=== PATIENT | female | born 1935 | race Caucasian/White ===

== ENCOUNTER 2017-07-30 09:42 | Emergency (ER) | payer MEDICARE, OTHER ==
[~2017-07-30] VITALS: Ht 152.4 cm; Wt 45.0 kg
[~2017-07-30 09:42] MED LIST: B CO1TAB2 PO; CRANCAP2 PO; DOXY100C PO; ENAL5TAB PO; ESTR1TAB PO; FOLI400T PO; MONT10TA2 PO; MULTTAB67 PO; PRED20 PO
[2017-07-30] MEDS ORDERED: LORazepam 2 MG TAB PO ONE (10:30)
[2017-07-30 11:17] VITALS: BP 143/65; PULSE 83; RESP 19; TEMP 98.3; O2SAT 100
--- NOTE | 2017-07-30 11:29 | PD ---
HPI Chief Complaint: Anxiety Time Seen by Provider: 11:26 Travel History International Travel<30 days: No Contact w/Intl Traveler<30days: No Traveled to known affect area: No History of Present Illness HPI Patient is an 81-year-old female presents emergency department for evaluation of generalized tremor. She states she was on her way to her primary care physician's office to discuss her medications as well as her chronic vaginal irritation when she developed generalized from her. This was first noticed by her son who is accompanying her, she was placed in a wheelchair and brought over to the emergency department for further evaluation. Patient states is never happened to her before. No alterations in consciousness, no tongue biting , no loss of urine. Patient does endorse nearly 20 pound weight loss over the past year. She states this was provoked by her and her son dying as well as her needing surgery on her face. She denies any blood in the stool vaginal bleeding cough congestion fevers nausea vomiting or chest pain. PFSH Past Medical History Cancer: No Cardiovascular Problems: No Diabetes: No Diminished Hearing: No Endocrine: No Genitourinary: No Hepatitis: No Hiatal Hernia: No Hypertension: Yes Immune Disorder: No Musculoskeletal: Yes (ARTHRITIS) Neurologic: No Psychiatric: No Reproductive: No Respiratory: No Thyroid Disease: No ?: Not Past Surgical History Abdominal Surgery: Yes (AGE 5 APPENDECTOMY) AICD: No Appendectomy: Yes Cardiac Surgery: No Ear Surgery: No Endocrine Surgery: No Eye Surgery: Yes (RIGHT CATARACT SURGERY) Genitourinary Surgery: No Gynecologic Surgery: Yes (HYSTERECTOMY) Hysterectomy: Yes Joint Replacement: No Oral Surgery: Yes (T&A AGE 2) Pacemaker: No Thoracic Surgery: No Tonsillectomy: Yes Other Surgery: Yes Social History Alcohol Use: No Tobacco Use: No (FORMER) Substance Use: No Allergies-Medications (Allergen,Severity, Reaction): Coded Allergies: codeine (Unverified Allergy, Mild, PASSES OUT, 04/29/17) amoxicillin (Unverified Adverse Reaction, Unknown, 04/29/17) clavulanic acid (Unverified Adverse Reaction, Unknown, 04/29/17) Reported Meds & Prescriptions Reported Meds & Active Scripts Active Reported Rephresh Pro-B (Lactobacillus) 2.5B-2.5B Cap 1 Cap PO DAILY Nasacort Allergy 24Hr Nasal [place] (Triamcinolone Acetonide Nasal [place]) 55 Mcg Spr 1 [place] EACH NARE DAILY PRN Claritin (Loratadine) 10 Mg Tablet 10 Mg PO DAILY Garlic Oil 1000 (Garlic) 1,000 Mg Cap 2,000 Mg PO DAILY Vitamin D3 (Cholecalciferol (Vitamin D3)) 2,000 Unit Tab.chew 2,000 Units PO DAILY [Red [place]] 375 Mg PO DAILY Cranberry Plus Vitamin C (Cranberry-Vitamin C-Vitamin E) 4,200-20-3 Mg-Mg-Unit Cap 2 Cap PO TID B Complex W/ C 1 Tab Tab 1 Tab PO DAILY Folic Acid 400 Mcg Tab 400 Mcg PO DAILY Enalapril (Enalapril Maleate) 5 Mg Tab 2.5 Mg PO DAILY Review of Systems Except as stated in HPI: all other systems reviewed are Neg Physical Exam Narrative GENERAL: Well-developed well-nourished but thin in no obvious distress. SKIN: Focused skin assessment warm/dry. HEAD: Atraumatic. Normocephalic. EYES: Pupils equal and round. No scleral icterus. No injection or drainage. ENT: No nasal bleeding or discharge. Mucous membranes pink and moist. NECK: Trachea midline. No JVD. CARDIOVASCULAR: Regular rate and rhythm. No murmur appreciated. RESPIRATORY: No accessory muscle use. Clear to auscultation. Breath sounds equal bilaterally. GASTROINTESTINAL: Abdomen soft, non-tender, nondistended. Hepatic and splenic margins not palpable. MUSCULOSKELETAL: No obvious deformities. No clubbing. No cyanosis. No edema. NEUROLOGICAL: Awake and alert. Cranial nerves II through XII are grossly intact and nonfocal, 5 out of 5 strength in all 4 extremity's, no tremor is seen during her ER visit. PSYCHIATRIC: Appropriate mood and affect; insight and judgment normal. Data Data Last Documented VS Orders Orders Lorazepam (Ativan) (07/30/17 10:30) Electrocardiogram (07/30/17 11:26) Ckmb (Isoenzyme) Profile (07/30/17 11:26) Complete Blood Count With Diff (07/30/17 11:26) Comprehensive Metabolic Panel (07/30/17 11:26) Magnesium (Mg) (07/30/17 11:26) Troponin I (07/30/17 11:26) Chest, Single Ap (07/30/17 11:26) Ecg Monitoring (07/30/17 11:26) Iv Access Insert/Monitor (07/30/17 11:26) Oximetry (07/30/17 11:26) Oxygen Administration (07/30/17 11:26) Sodium Chloride 0.9% Flush (Ns Flush) (07/30/17 11:30) Urinalysis - C+S If Indicated (07/30/17 13:00) Labs Laboratory Tests Test 07/30/17 11:30 07/30/17 11:40 White Blood Count 8.1 TH/MM3 Red Blood Count 4.12 MIL/MM3 Hemoglobin 13.4 GM/DL Hematocrit 38.1 % Mean Corpuscular Volume 92.4 FL Mean Corpuscular Hemoglobin 32.5 PG Mean Corpuscular Hemoglobin Concent 35.2 % Red Cell Distribution Width 13.8 % Platelet Count 264 TH/MM3 Mean Platelet Volume 8.6 FL Neutrophils (%) (Auto) 65.6 % Lymphocytes (%) (Auto) 23.2 % Monocytes (%) (Auto) 9.1 % Eosinophils (%) (Auto) 0.6 % Basophils (%) (Auto) 1.5 % Neutrophils # (Auto) 5.3 TH/MM3 Lymphocytes # (Auto) 1.9 TH/MM3 Monocytes # (Auto) 0.7 TH/MM3 Eosinophils # (Auto) 0.0 TH/MM3 Basophils # (Auto) 0.1 TH/MM3 CBC Comment DIFF FINAL Differential Comment Blood Urea Nitrogen 19 MG/DL Creatinine 1.05 MG/DL Random Glucose 118 MG/DL Total Protein 8.3 GM/DL Albumin 4.1 GM/DL Calcium Level 9.5 MG/DL Magnesium Level 1.8 MG/DL Alkaline Phosphatase 77 U/L Aspartate Amino Transf (AST/SGOT) 39 U/L Alanine Aminotransferase (ALT/SGPT) 40 U/L Total Bilirubin 0.4 MG/DL Sodium Level 139 MEQ/L Potassium Level 3.9 MEQ/L Chloride Level 103 MEQ/L Carbon Dioxide Level 26.7 MEQ/L Anion Gap 9 MEQ/L Estimat Glomerular Filtration Rate 50 ML/MIN Total Creatine Kinase 69 U/L Troponin I LESS THAN 0.02 NG/ML Urine Color YELLOW Urine Turbidity CLEAR Urine pH 6.0 Urine Specific [place] 1.009 Urine Protein TRACE mg/dL Urine Glucose (UA) NEG mg/dL Urine Ketones NEG mg/dL Urine Occult Blood NEG Urine Nitrite NEG Urine Bilirubin NEG Urine Urobilinogen LESS THAN 2.0 MG/DL Urine Leukocyte Esterase SMALL Urine RBC 1 /hpf Urine WBC 4 /hpf Urine Bacteria RARE /hpf Urine Hyaline Casts 3 /lpf Urine Mucus FEW /lpf Microscopic Urinalysis Comment CULT NOT INDICATED MDM Medical Decision Making Medical Screen Exam Complete: Yes Emergency Medical Condition: Yes Differential Diagnosis Tremor, electro-light abnormality, fatigue, anemia, CVA highly unlikely. Narrative Course Patient roomed in emergency department, she appears well and in no distress at all. Had transient tremor now resolved. No definitive cause seen in the emergency department but given she is now not having any issue highly doubt any sinister cause. Discussed follow-up with her primary care physician and discussed return to ED criteria. Diagnosis Primary Impression: Fatigue Additional Impressions: Tremor Weight loss, unintentional Disposition: 01 DISCHARGE HOME Condition: Stable Bernabe Villarreal MD Jul 30, 2017 11:29
[2017-07-30] MEDS ORDERED: SODIUM CHLORIDE 0.9% FLUSH 10 ML FLUSH IVF PRN (11:30)
[2017-07-30 11:59] VITALS: RESP 18; O2SAT 97
--- NOTE | 2017-07-30 12:17 | RADRPT ---
EXAM DATE/TIME: 07/30/2017 11:55 [facility] COMPARISON: CHEST SINGLE AP, July 13, 2016, 9:59. INDICATIONS : Chest pain. Patient states she was shaky when she arrived at her doctor appointment today. No other c omplaints. MEDICAL HISTORY : None. SURGICAL HISTORY : None. ENCOUNTER: Initial ACUITY: 1 day PAIN SCORE: 0/10 LOCATION: Bilateral chest FINDINGS: A single view of the chest demonstrates the lungs to be symmetrically aerated without evidence of mas s, infiltrate or effusion. Lungs are hyperinflated bilaterally. The cardiomediastinal contours are un remarkable. Osseous structures are intact. CONCLUSION: Hyperinflation suggesting COPD. No acute infiltrate or effusion. João De La Torre Jr., MD on July 30, 2017 at 12:15 Board Certified Radiologist. This report was verified electronically.
[2017-07-30 12:20] LABS: AUTOMATED NEUTROPHIL # 5.3 TH/MM3 (1.8-7.7); BASOPHIL # 0.1 TH/MM3 (0-0.2); BASOPHIL % 1.5 % (0.0-2.0); EOSINOPHIL % 0.6 % (0.0-4.0); HEMATOCRIT 38.1 % (35.0-46.0); HEMO FLAGS DIFF FINAL; LYMPH % 23.2 % (9.0-44.0); LYMPHOCYTE # 1.9 TH/MM3 (1.0-4.8); MEAN CELL VOLUME 92.4 FL (80.0-100.0); MEAN CORPUSCULAR HEMOGLOBIN 32.5 PG (27.0-34.0); MEAN CORPUSCULAR HGB CONC 35.2 % (32.0-36.0); MONO % 9.1 % (0.0-8.0); NEUT % 65.6 % (16.0-70.0); PLATELET COUNT 264 TH/MM3 (150-450); RED BLOOD COUNT 4.12 MIL/MM3 (4.00-5.30); RED CELL DISTRIBUTION WIDTH 13.8 % (11.6-17.2); WHITE BLOOD COUNT 8.1 TH/MM3 (4.0-11.0)
[2017-07-30 12:24] LABS: ALT (GPT) 40 U/L (10-53); ANION GAP 9 MEQ/L (5-15); AST (GOT) 39 U/L (15-37); BICARBONATE 26.7 MEQ/L (21.0-32.0); BLOOD UREA NITROGEN 19 MG/DL (7-18); CHLORIDE 103 MEQ/L (98-107); GLOMERULAR FILTRATION RATE 50 ML/MIN (>89); MAGNESIUM 1.8 MG/DL (1.5-2.5); POTASSIUM 3.9 MEQ/L (3.5-5.1); SODIUM (NA) 139 MEQ/L (136-145)
[2017-07-30 12:28] LABS: ALKALINE PHOSPHATASE 77 U/L (45-117); TOTAL BILIRUBIN ADULT 0.4 MG/DL (0.2-1.0)
[2017-07-30 12:38] LABS: CREATINE KINASE 69 U/L (26-192)
[2017-07-30] MEDS ORDERED: TRIA1SPR5 EACH NARE (13:21)
[2017-07-30] MEDS ORDERED: CRANCAP10 PO (13:21)
[2017-07-30] MEDS ORDERED: [UNRECOGNIZED DRUG - OTHER] PO (13:21)
[2017-07-30] MEDS ORDERED: CHOL1CHW5 PO (13:21)
[2017-07-30] MEDS ORDERED: CLAR10TA7 PO (13:21)
[2017-07-30] MEDS ORDERED: GARL1000 PO (13:21)
[2017-07-30] MEDS ORDERED: [UNRECOGNIZED DRUG - CODE] PO (13:21)
[2017-07-30 14:20] LABS: BACTERIA, URINE RARE /hpf; BLOOD, URINE NEG (NEG); COMMENT (UR) CULT NOT INDICATED; CULTURE IF INDICATED CULT NOT INDICATED; GLUCOSE,URINE NEG (NEG); HYALINE CAST, URINE 3 /lpf (RARE); KETONE, URINE NEG (NEG); MUCUS URINE FEW /lpf (OCC); NITRITE,URINE NEG (NEG); URINE COLOR YELLOW (YELLW/STRAW)
--- NOTE | 2017-07-30 18:15 | EKG ---
Date Performed: 07/30/2017 Time Performed: 11:33:49 PTAGE: 81 years EKG: Sinus rhythm NORMAL ECG PREVIOUS TRACING : 09/03/2016 12.12 Compared to prior tracing no significant change DOCTOR: Lan Holt Interpretating Date/Time 07/30/2017 18:15:36
== END 2017-07-30 15:08 | disposition home or self-care (01) ==
LOC: NEPE 09:42
DX: R53.83 Other fatigue (principal); R25.1 Tremor, unspecified; N89.8 Other specified noninflammatory disorders of vagina; I10 Essential (primary) hypertension; M19.90 Unspecified osteoarthritis, unspecified site
CPT/HCPCS: 71010; 80053; 81001; 82550; 83735; 84484; 85025; 93005; 99285

== ENCOUNTER 2018-02-21 10:50 | Emergency (ER) | payer MEDICARE, OTHER ==
[~2018-02-21] VITALS: Ht 154.9 cm; Wt 43.6 kg
[~2018-02-21 10:50] MED LIST changes: +CHOL1CHW5 PO; +CLAR10TA7 PO; +CRANCAP10 PO; -CRANCAP2 PO; -DOXY100C PO; -ESTR1TAB PO; +GARL1000 PO; -MONT10TA2 PO; -MULTTAB67 PO; -PRED20 PO; +TRIA1SPR5 EACH NARE; +[UNRECOGNIZED DRUG - CODE] PO; +[UNRECOGNIZED DRUG - OTHER] PO
[2018-02-21 10:53] VITALS: BP 169/92; PULSE 72; RESP 18; TEMP 98.3; O2SAT 99
[2018-02-21 11:11] LABS: BILIRUBIN, URINE NEG (NEG); BLOOD, URINE NEG (NEG); GLUCOSE,URINE NEG (NEG); KETONE, URINE NEG (NEG); NITRITE,URINE NEG (NEG); PH, URINE 5.5 (5.0-8.5); URINE COLOR YELLOW (YELLW/STRAW); URINE LEUKOCYTE ESTERASE SMALL (NEG)
[2018-02-21 11:17] LABS: RBC, URINE 0-3 /hpf (0-3); SQUAMOUS EPITHELIAL CELL URINE 0-5 /hpf (0-5); WBC, URINE 0-2 /hpf (0-5)
--- NOTE | 2018-02-21 11:23 | PD ---
HPI Chief Complaint: Abdominal Pain Time Seen by Provider: 11:09 Travel History International Travel<30 days: No Contact w/Intl Traveler<30days: No Traveled to known affect area: No History of Present Illness HPI The patient was seen and examined in the presence of the nurse. This patient is having severe anxiety problems. Saw the primary physician 2 days ago and was started on use bar. She does not think is helping out. She has diffuse body aches and sensation of being scared. She complains of generalized weakness. She is visibly anxious. She lives with her son was at bedside and reporting that she has been dealing with this all her life. It sounds like she has some OCD type traits. She frequently washes her hands. She had electroconvulsive therapy as a child. She denies fever or chest pain or shortness of breath. She ate this morning without any difficulty. Symptom severity is moderate. It is a chronic problem but worse over the last several weeks. No alleviating factors. No exacerbating factors. PFSH Past Medical History Cancer: No Cardiovascular Problems: No Diabetes: No Diminished Hearing: No Endocrine: No Genitourinary: No Hepatitis: No Hiatal Hernia: No Hypertension: Yes Immune Disorder: No Musculoskeletal: Yes (ARTHRITIS) Neurologic: No Psychiatric: No Reproductive: No Respiratory: No Thyroid Disease: No Tetanus Vaccination: Unknown Influenza Vaccination: Yes ?: Not Past Surgical History Abdominal Surgery: Yes (AGE 5 APPENDECTOMY) AICD: No Appendectomy: Yes Cardiac Surgery: No Ear Surgery: No Endocrine Surgery: No Eye Surgery: Yes (RIGHT CATARACT SURGERY) Genitourinary Surgery: No Gynecologic Surgery: Yes (HYSTERECTOMY) Hysterectomy: Yes Joint Replacement: No Oral Surgery: Yes (T&A AGE 2) Pacemaker: No Thoracic Surgery: No Tonsillectomy: Yes Other Surgery: Yes Social History Alcohol Use: No Tobacco Use: No (FORMER) Substance Use: No Allergies-Medications (Allergen,Severity, Reaction): Coded Allergies: codeine (Unverified Allergy, Mild, PASSES OUT, 02/21/18) amoxicillin (Unverified Adverse Reaction, Unknown, 02/21/18) clavulanic acid (Unverified Adverse Reaction, Unknown, 02/21/18) Reported Meds & Prescriptions Reported Meds & Active Scripts Active Reported Buspirone (Buspirone HCl) 10 Mg Tab 10 Mg PO BID Rephresh Pro-B (Lactobacillus) 2.5B-2.5B Cap 1 Cap PO DAILY Nasacort Allergy 24Hr Nasal [place] (Triamcinolone Acetonide Nasal [place]) 55 Mcg Spr 1 [place] EACH NARE DAILY PRN Claritin (Loratadine) 10 Mg Tablet 10 Mg PO DAILY Garlic Oil 1000 (Garlic) 1,000 Mg Cap 2,000 Mg PO DAILY Vitamin D3 (Cholecalciferol (Vitamin D3)) 2,000 Unit Tab.chew 2,000 Units PO DAILY [Red [place]] 375 Mg PO DAILY Cranberry Plus Vitamin C (Cranberry-Vitamin C-Vitamin E) 4,200-20-3 Mg-Mg-Unit Cap 2 Cap PO TID B Complex W/ C 1 Tab Tab 1 Tab PO DAILY Folic Acid 400 Mcg Tab 400 Mcg PO DAILY Enalapril (Enalapril Maleate) 5 Mg Tab 2.5 Mg PO DAILY Review of Systems General / Constitutional: No: Fever Eyes: No: Visual changes HENT: No: Headaches Cardiovascular: No: Chest Pain or Discomfort Respiratory: No: Shortness of Breath Gastrointestinal: No: Abdominal Pain Genitourinary: No: Dysuria Musculoskeletal: Positive: Myalgias, Weakness, No: Pain Skin: No Rash Neurologic: Positive: Weakness Psychiatric: Positive: Anxiety Endocrine: No: Polydipsia Hematologic/Lymphatic: No: Easy Bruising Physical Exam Narrative GENERAL: Thin anxious well-developed patient in no apparent distress. SKIN: Focused skin assessment reveals no rash and nodules. Skin is Warm and dry. HEAD: Atraumatic. Normocephalic. EYES: Pupils equal and round. No scleral icterus. No injection or drainage. ENT: No nasal bleeding or discharge. Mucous membranes pink and moist. NECK: Trachea midline. No JVD. CARDIOVASCULAR: Regular rate and rhythm. No murmur appreciated. RESPIRATORY: No accessory muscle use. Clear to auscultation. Breath sounds equal bilaterally. GASTROINTESTINAL: Abdomen soft, non-tender, nondistended. Hepatic and splenic margins not palpable. MUSCULOSKELETAL: No obvious deformities. No clubbing. No cyanosis. No edema. NEUROLOGICAL: Awake and alert. No obvious cranial nerve deficits. Motor grossly within normal limits. Normal speech. PSYCHIATRIC: Anxious mood and affect; insight and judgment reduced . Data Data Last Documented VS Vital Signs Date Time Temp Pulse Resp B/P (MAP) Pulse Ox O2 Delivery O2 Flow Rate FiO2 02/21/18 12:59 74 20 136/84 (101) 99 Room Air 02/21/18 10:53 98.3 Orders Orders Urinalysis - C+S If Indicated (02/21/18 10:52) Complete Blood Count With Diff (02/21/18 11:19) Comprehensive Metabolic Panel (02/21/18 11:19) Thyroid Stimulating Hormone (02/21/18 11:19) Labs Laboratory Tests Test 02/21/18 11:05 02/21/18 11:25 Urine Collection Type CLEAN CATCH Urine Color YELLOW Urine Turbidity CLEAR Urine pH 5.5 Urine Specific [place] 1.020 Urine Protein NEG mg/dL Urine Glucose (UA) NEG mg/dL Urine Ketones NEG mg/dL Urine Occult Blood NEG Urine Nitrite NEG Urine Bilirubin NEG Urine Urobilinogen 0.2 MG/DL Urine Leukocyte Esterase SMALL Urine RBC 0-3 /hpf Urine WBC 0-2 /hpf Urine Squamous Epithelial Cells 0-5 /hpf Microscopic Urinalysis Comment CULT NOT INDICATED White Blood Count 7.3 TH/MM3 Red Blood Count 4.18 MIL/MM3 Hemoglobin 12.9 GM/DL Hematocrit 39.0 % Mean Corpuscular Volume 93.4 FL Mean Corpuscular Hemoglobin 31.0 PG Mean Corpuscular Hemoglobin Concent 33.2 % Red Cell Distribution Width 13.1 % Platelet Count 253 TH/MM3 Mean Platelet Volume 7.9 FL Neutrophils (%) (Auto) 70.1 % Lymphocytes (%) (Auto) 19.9 % Monocytes (%) (Auto) 7.8 % Eosinophils (%) (Auto) 1.2 % Basophils (%) (Auto) 1.0 % Neutrophils # (Auto) 5.0 TH/MM3 Lymphocytes # (Auto) 1.5 TH/MM3 Monocytes # (Auto) 0.6 TH/MM3 Eosinophils # (Auto) 0.1 TH/MM3 Basophils # (Auto) 0.1 TH/MM3 CBC Comment DIFF FINAL Differential Comment Blood Urea Nitrogen 14 MG/DL Creatinine 1.00 MG/DL Random Glucose 116 MG/DL Total Protein 7.7 GM/DL Albumin 4.0 GM/DL Calcium Level 9.4 MG/DL Alkaline Phosphatase 63 U/L Aspartate Amino Transf (AST/SGOT) 25 U/L Alanine Aminotransferase (ALT/SGPT) 26 U/L Total Bilirubin 0.3 MG/DL Sodium Level 137 MEQ/L Potassium Level 4.2 MEQ/L Chloride Level 103 MEQ/L Carbon Dioxide Level 27.0 MEQ/L Anion Gap 7 MEQ/L Estimat Glomerular Filtration Rate 53 ML/MIN Thyroid Stimulating Hormone 3rd Gen 0.973 uIU/ML MDM Medical Decision Making Medical Screen Exam Complete: Yes Emergency Medical Condition: Yes Medical Record Reviewed: Yes Differential Diagnosis Anxiety, panic, OCD, thyroid abnormality, electrolyte abnormality Narrative Course I have reviewed the patient's electronic medical record. Urinalysis is normal CBC is normal TSH is normal CMP is normal Patient's exam other than being anxious is benign. She has a soft nontender benign abdomen and no appendix or uterus. On recheck she looks clinically well. I think she is having a lot of anxiety issues but stable for outpatient follow-up Diagnosis Primary Impression: Generalized anxiety disorder Additional Impressions: Generalized weakness Malaise Additional Instructions: The patient was advised to follow up with their physician and return if they worsen. Med/Other Pt SpecificInfo: Other Disposition: 01 DISCHARGE HOME Condition: Stable Russell Porter MD Feb 21, 2018 11:23
[2018-02-21] MEDS ORDERED: BUSP10TA PO (11:27)
[2018-02-21 11:33] LABS: BASOPHIL # 0.1 TH/MM3 (0-0.2); EOSINOPHIL # 0.1 TH/MM3 (0-0.4); EOSINOPHIL % 1.2 % (0.0-4.0); HEMOGLOBIN 12.9 GM/DL (11.6-15.3); LYMPH % 19.9 % (9.0-44.0); LYMPHOCYTE # 1.5 TH/MM3 (1.0-4.8); MEAN CELL VOLUME 93.4 FL (80.0-100.0); MEAN CORPUSCULAR HGB CONC 33.2 % (32.0-36.0); MEAN PLATELET VOLUME 7.9 FL (7.0-11.0); MONO % 7.8 % (0.0-8.0); MONOCYTE # 0.6 TH/MM3 (0-0.9); NEUT % 70.1 % (16.0-70.0); PLATELET COUNT 253 TH/MM3 (150-450); RED BLOOD COUNT 4.18 MIL/MM3 (4.00-5.30); RED CELL DISTRIBUTION WIDTH 13.1 % (11.6-17.2); WHITE BLOOD COUNT 7.3 TH/MM3 (4.0-11.0)
[2018-02-21 11:41] LABS: CHLORIDE 103 MEQ/L (98-107); SODIUM (NA) 137 MEQ/L (136-145)
[2018-02-21 11:45] LABS: CALCIUM 9.4 MG/DL (8.5-10.1); GLUCOSE,RANDOM 116 MG/DL (74-106)
[2018-02-21 11:46] LABS: BLOOD UREA NITROGEN 14 MG/DL (7-18)
[2018-02-21 11:49] LABS: ALT (GPT) 26 U/L (10-53); AST (GOT) 25 U/L (15-37); GLOMERULAR FILTRATION RATE 53 ML/MIN (>89)
[2018-02-21 11:50] LABS: TOTAL BILIRUBIN ADULT 0.3 MG/DL (0.2-1.0); TOTAL PROTEIN 7.7 GM/DL (6.4-8.2)
[2018-02-21 11:51] LABS: ALKALINE PHOSPHATASE 63 U/L (45-117)
[2018-02-21 12:59] VITALS: BP 136/84; PULSE 74; RESP 20; O2SAT 99
== END 2018-02-21 13:38 | disposition home or self-care (01) ==
LOC: PHED 10:50
DX: F41.1 Generalized anxiety disorder (principal); R53.1 Weakness; R53.81 Other malaise; I10 Essential (primary) hypertension; M19.90 Unspecified osteoarthritis, unspecified site; Z87.891 Personal history of nicotine dependence
CPT/HCPCS: 80053; 81001; 84443; 85025; 99283